=== PATIENT | female | born 1970 ===

== ENCOUNTER 2017-10-31 14:06 | Emergency (ER) | payer OTHER ==
[2017-10-31 14:06] VITALS: BMI 32.5
--- NOTE | 2017-10-31 15:58 | RAD ---
PROCEDURE: Right middle finger radiographs. HISTORY: pain COMPARISON: None available. TECHNIQUE: AP radiograph of the right hand, as well as spot oblique and lateral images of right middle finger were obtained. FINDINGS: RIGHT MIDDLE FINGER: Right middle finger appears unremarkable, without acute displaced fracture identified. Remainder of the right hand (as seen on the AP view) grossly unremarkable. JOINTS: No dislocation. SOFT TISSUES: Unremarkable. No evidence of radiopaque foreign body. OTHER FINDINGS: None. IMPRESSION: No acute displaced fracture identified. If symptoms persist or if there is continued clinical concern, x-ray follow-up in 7-10 days should be considered.
--- NOTE | 2017-10-31 16:04 | C.PDOC ---
History Of Present Illness 47yo female with no known past medical history, left hand dominant, presents to ED for evaluation of pain to her right 3rd digit, mostly present at the base of her finger. Patient states the pain has been present for the past couple days, and is present with ROM. She denies any decrease in ROM, fever, joint pain or numbness. She denies any other medical complaints. Time Seen by Provider: 10/31/17 14:57 Chief Complaint (Nursing): Upper Extremity Problem/Injury History Per: Patient History/Exam Limitations: no limitations Onset/Duration Of Symptoms: Days Quality: "Pain" Exacerbating Factor(s): Strenuous Use Of Affected Area Recent travel outside of the [place]: No Past Medical History Reviewed: Historical Data, Nursing Documentation, Vital Signs Vital Signs: Last Vital Signs Temp 97.5 F L 10/31/17 16:13 Pulse 74 10/31/17 16:13 Resp 18 10/31/17 16:13 BP 141/80 10/31/17 16:13 Pulse Ox 96 10/31/17 18:11 - Medical History PMH: Asthma, Migraine Surgical History: Tonsillectomy Family History: States: No Known Family Hx, Unknown Family Hx - Social History Hx Tobacco Use: Yes Hx Alcohol Use: Yes Hx Substance Use: No - Immunization History Hx Tetanus Toxoid Vaccination: No Hx Influenza Vaccination: Yes Hx Pneumococcal Vaccination: No Review Of Systems Constitutional: Negative for: Fever Musculoskeletal: Positive for: Hand Pain (pain to right 3rd digit). Negative for: Other (joint pain) Neurological: Negative for: Weakness, Numbness Physical Exam - Physical Exam Appears: Non-toxic, No Acute Distress Extremity: Normal ROM (normal ROM of right 3rd digit), Tenderness (tenderness to right 3rd MCP), No Deformity, No Swelling Neurological/Psych: Oriented x3, Normal Motor, Normal Sensation, Normal Reflexes ED Course And Treatment O2 Sat by Pulse Oximetry: 96 (RA) Pulse Ox Interpretation: Normal - Other Rad XR Right Hand X-Ray: Viewed By Me, Read By Radiologist Interpretation: No acute displaced fracture identified. If symptoms persist or if there is continued clinical concern, x-ray follow-up in 7-10 days should be considered. Progress Note: XR with no acute findings, patient was placed in a finger splint. Patient stable for discharge home. Medical Decision Making Medical Decision Making: XR R 3rd digit : no fracture, no abnormality, as read by PA Dx of possible tendonitis vs tenosynovitis. Advised rest, ice and elevation. Finger splint applied. Disposition Counseled Patient/Family Regarding: Studies Performed, Diagnosis, Need For Followup, Rx Given - Disposition Referrals: Ari Bautista III, MD [Staff Provider] - Disposition: HOME/ ROUTINE Disposition Time: 16:03 Condition: STABLE Additional Instructions: Follow up with orthopedic referral in 2 days without fail for further evaluation. Take medication as prescribed. Return to the ER at any time for any new or worsening symptoms. Prescriptions: Meloxicam [Mobic] 15 mg PO DAILY #20 tab Instructions: Tenosynovitis (ED), Arthralgia (ED), Tendinitis (ED) Forms: [employer] (Andorran), Work Excuse Print Language: ETHIOPIAN - Clinical Impression Clinical Impression: Finger pain, right, Tendonitis - PA / [employer] / Resident Statement MD/DO has reviewed & agrees with the documentation as recorded. - Scribe Statement The provider has reviewed the documentation as recorded by the Deann Mratinez Provider Attestation: All medical record entries made by the Deann were at my direction and personally dictated by me. I have reviewed the chart and agree that the record accurately reflects my personal performance of the history, physical exam, medical decision making, and the department course for this patient. I have also personally directed, reviewed, and agree with the discharge instructions and disposition.
[2017-10-31 16:14] VITALS: BP 141/80; PULSE 74; RESP 18; TEMP 97.5
[2017-10-31 18:05] VITALS: O2SAT 96
== END 2017-10-31 16:16 | disposition home or self-care (01) ==
LOC: MERGE 14:06 → C.ER 14:06
DX: M77.9 Enthesopathy, unspecified (principal); M79.644 Pain in right finger(s)

== ENCOUNTER 2018-01-10 13:58 | Emergency (ER) | payer OTHER ==
[2018-01-10 13:58] VITALS: BMI 32.5
[2018-01-10 14:08] VITALS: BP 121/85; PULSE 89; RESP 18; TEMP 98.1; O2SAT 95
--- NOTE | 2018-01-10 15:02 | C.PDOC ---
History Of Present Illness Violette Boss is a 47 year old female, with a past medical history of ACL tear and repair with arthroscopy in 1990 for high school injury, who presents to the emergency department complaining of a chronic left knee pain below the patella. 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 She denies any trauma or other medical complaints. PMD: Lazaro Hawk Time Seen by Provider: 01/10/18 14:56 Chief Complaint (Nursing): Lower Extremity Problem/Injury History Per: Patient History/Exam Limitations: no limitations Onset/Duration Of Symptoms: Days (chronic) Current Symptoms Are (Timing): Still Present Past Medical History Reviewed: Historical Data, Nursing Documentation, Vital Signs Vital Signs: Last Vital Signs Temp 98.1 F 01/10/18 14:07 Pulse 89 01/10/18 14:07 Resp 18 01/10/18 15:29 BP 121/85 01/10/18 14:07 Pulse Ox 95 01/10/18 19:28 - Medical History PMH: Asthma, Migraine Surgical History: Tonsillectomy Family History: States: Unknown Family Hx - Social History Hx Tobacco Use: Yes Hx Alcohol Use: Yes Hx Substance Use: No - Immunization History Hx Tetanus Toxoid Vaccination: No Hx Influenza Vaccination: Yes Hx Pneumococcal Vaccination: No Review Of Systems Constitutional: Negative for: Other (trauma) Musculoskeletal: Positive for: Leg Pain (left knee below patella) Physical Exam - Physical Exam Appears: No Acute Distress Skin: Normal Color, Warm, Dry Head: Atraumatic, Normacephalic, Tenderness Eye(s): bilateral: Normal Inspection Neck: Normal ROM Extremity: Normal ROM, Tenderness (mild tenderness to inferior patella), No Pedal Edema, No Calf Tenderness, No Deformity, Swelling (mild swelling to inferior patella) Neurological/Psych: Oriented x3 ED Course And Treatment O2 Sat by Pulse Oximetry: 95 (RA) Pulse Ox Interpretation: Normal - Other Rad L knee X-Ray: Interpreted by Me (nl) Progress Note: motrin Medical Decision Making Medical Decision Making: Initial Impression: Chronic knee pain Initial Plan: --Knee 3 views LT [RAD] --Motrin tab 600 mg PO --Reevaluation no internal knee derangement, ACL repair 1990 (high school) working occasionally on her knees (work in [employer]) as part of job obligations. consider prepatellar syndrome. 15:36 Knee X-Ray FINDINGS: BONES: No acute displaced fracture. Degenerative changes including tenting of the intercondylar notch and tricompartmental joint space narrowing. JOINTS: No dislocation. JOINT EFFUSION: No significant joint effusion. OTHER FINDINGS: None. IMPRESSION: Degenerative changes as above. Disposition Doctor Will See Patient In The: Office Counseled Patient/Family Regarding: Studies Performed, Diagnosis - Disposition Referrals: Twan White MD [Staff Provider] - Disposition: HOME/ ROUTINE Disposition Time: 15:02 Condition: GOOD Additional Instructions: consider pre-patellar syndrome from working on knees (typical syndrome) Minimal work on knees as able ice packs to the anterior knee 1/2 hour per hour, nothing hot. NEVER HEAT TREATMENTS!!!! motrin 400-600 mg every 6 hours as needed Follow-up with Dr. 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 Instructions: Knee Pain (ED) Forms: [employer] (Norwegian) - Clinical Impression Clinical Impression: Knee pain, chronic - Scribe Statement Erasmo Baker Provider Attestation: All medical record entries made by the Scribe were at my direction and personally dictated by me. I have reviewed the chart and agree that the record accurately reflects my personal performance of the history, physical exam, medical decision making, and the department course for this patient. I have also personally directed, reviewed, and agree with the discharge instructions and disposition.
--- NOTE | 2018-01-10 15:41 | RAD ---
PROCEDURE: Left Knee Radiographs. HISTORY: COMPARISON: Left knee radiographs performed 11/25/14 FINDINGS: BONES: No acute displaced fracture. Degenerative changes including tenting of the intercondylar notch and tricompartmental joint space narrowing. JOINTS: No dislocation. JOINT EFFUSION: No significant joint effusion. OTHER FINDINGS: None. IMPRESSION: Degenerative changes as above.
== END 2018-01-10 15:33 | disposition home or self-care (01) ==
LOC: C.ER 13:58
DX: M25.562 Pain in left knee (principal); G89.29 Other chronic pain; Z87.891 Personal history of nicotine dependence

== ENCOUNTER 2019-02-26 10:55 | Emergency (ER) | payer OTHER ==
[2019-02-26 11:18] VITALS: BMI 34.1
[2019-02-26 11:23] VITALS: BP 134/92; PULSE 70; RESP 17; TEMP 98; O2SAT 97
[2019-02-26] MEDS ORDERED: Apap-Butalbital-Caffeine 325-50-40mg Tab PO STA (11:51)
[2019-02-26] MEDS ORDERED: Apap-Butalbital-Caffeine 325-50-40mg Tab ONE (12:02)
--- NOTE | 2019-02-26 12:14 | C.PDOC ---
History Of Present Illness 48 year old female presents to ED with complaint of headache for the past 8 days. Patient states that it began around the time she started her hypertension medication. Patient states that when she went to work today she vomited. She notes that she used to get migraines when she was younger. She states she went to see her doctor yesterday and was told the headache was due to her blood pressure. Patient describes the pain as a 9/10 in severity and as a throbbing pain. Patient also complains of sensitivity to light. She states that she took Tylenol for pain and that there was improvement until 2 days ago when the pain returned. Patient denies SOB, difficulty breathing, and chest pain. Chief Complaint (Nursing): Headache History Per: Patient History/Exam Limitations: no limitations Onset/Duration Of Symptoms: Days (8) Current Symptoms Are (Timing): Still Present Pain Scale Rating Of: 9 Quality: Other (throbbing) Associated Symptoms: Photophobia, Vomiting. denies: Nausea Past Medical History Reviewed: Historical Data, Nursing Documentation, Vital Signs Vital Signs: Last Vital Signs Temp 98.0 F 02/26/19 11:15 Pulse 70 02/26/19 11:15 Resp 17 02/26/19 11:15 BP 134/92 H 02/26/19 11:15 Pulse Ox 97 02/26/19 11:15 - Medical History PMH: Asthma, HTN, Migraine Surgical History: Tonsillectomy Family History: States: Unknown Family Hx - Social History Hx Tobacco Use: Yes Hx Alcohol Use: Yes Hx Substance Use: No - Immunization History Hx Tetanus Toxoid Vaccination: No Hx Influenza Vaccination: Yes (2018) Hx Pneumococcal Vaccination: No Review Of Systems Constitutional: Negative for: Fever, Chills, Weakness Eyes: Positive for: Other (light sensitivity) Cardiovascular: Negative for: Chest Pain Respiratory: Negative for: Shortness of Breath Gastrointestinal: Positive for: Vomiting Neurological: Positive for: Headache. Negative for: Weakness, Numbness Physical Exam - Physical Exam Appears: Non-toxic, No Acute Distress Skin: Normal Color, Warm, Dry Head: Atraumatic, Normacephalic Eye(s): bilateral: PERRL, Other (photophobia) Ear(s): Bilateral: Normal Nose: No Discharge Oral Mucosa: Moist Throat: No Erythema, No Exudate Neck: Normal ROM, Supple Chest: Symmetrical, No Deformity Cardiovascular: Rhythm Regular, No Murmur Respiratory: No Accessory Muscle Use, No Rales, No Rhonchi, No Wheezing Gastrointestinal/Abdominal: Soft, No Tenderness Back: No CVA Tenderness Neurological/Psych: Oriented x3, Normal Speech, Normal Cognition, Normal Motor, Normal Sensation Gait: Steady ED Course And Treatment O2 Sat by Pulse Oximetry: 97 (in RA) Medical Decision Making Medical Decision Making: Impression: 48 year old female presents to ED with complaint of headache for the past 8 days. Plan: Patient given Fiorcet PO Re-evaluation. Patient feels better. Discussed plan with patient who expresses understanding. All questions answered and there is agreement with the plan to discharge home with instructions. Patient stable for discharge. Return if symptoms persist or worsen. Disposition Counseled Patient/Family Regarding: Diagnosis, Need For Followup, Rx Given - Disposition Referrals: Lazaro Hawk MD [Medical Doctor] - Disposition: HOME/ ROUTINE Disposition Time: 12:11 Condition: IMPROVED Additional Instructions: Take Fiorcet every 4 hrs as needed for Migraines Follow up with PMD in 1-2 days Return to ED if symptoms worsen Prescriptions: Acetaminophen/Butalbital/Caf [Fioricet] 1 tab PO Q4 #30 tab Instructions: Migraine Headache (DC) Forms: [facility] [employer] (South African), Work Excuse - Clinical Impression Clinical Impression: Migraine - PA / LAB SUPPORT TECH / Resident Statement MD/DO has reviewed & agrees with the documentation as recorded. (Berna Mcdaniel) - Scribe Statement The provider has reviewed the documentation as recorded by the Scribe (Berna Mcdaniel) All medical record entries made by the Scribe were at my direction and personally dictated by me. I have reviewed the chart and agree that the record accurately reflects my personal performance of the history, physical exam, medical decision making, and the department course for this patient. I have also personally directed, reviewed, and agree with the discharge instructions and disposition.
== END 2019-02-26 12:22 | disposition home or self-care (01) ==
LOC: C.ER 10:55
DX: G43.909 Migraine, unspecified, not intractable, without status migrainosus (principal)